=== PATIENT | male | born 1970 | race Caucasian/White ===

== ENCOUNTER 2017-04-04 11:21 | Inpatient (IN) | payer OTHER ==
[~2017-04-04] VITALS: Ht 167.6 cm; Wt 86.7 kg
[2017-04-04] MEDS ORDERED: SODIUM CHLORIDE 0.9% 1L BAG IV* STA (12:10)
--- NOTE | 2017-04-04 12:50 | ERD ---
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 The patient has had weakness and malaise on and off for several months he has been bouncing around different emergency rooms because of this. His insurance has changed and he followed up with Dr. Fisher for the first time today. She was attempting to arrange for outpatient IVIG but the patient presented to the emergency room because he continued to feel ill. He does describe a cough that is dry, minimally productive, occasionally with bloody sputum. He does describe a history and current treatment for bilateral lower extremity DVT on Lovenox. He denies any pleuritic pain or chest pain at this time. No fevers or chills otherwise the patient has generalized malaise. ROS All systems reviewed and are negative except as per history of present illness. Medications Home Meds Reported Medications Omeprazole* (Omeprazole*) 20 Mg Capsule.dr, 20 MG PO AC BREAKFAST, #30 CAP 04/04/17 Gemfibrozil* (Gemfibrozil*) 600 Mg Tablet, 600 MG PO BID, TAB 04/04/17 Esomeprazole Mag Trihydrate (Nexium) 40 Mg Capsule.dr, 40 MG PO BID, #60 CAP 04/04/17 Acyclovir* (Acyclovir*) 400 Mg Tablet, 400 MG PO BID, TAB 04/04/17 Sulfamethoxazole/Trimethoprim* (Bactrim Ds* Tablet) 1 Each Tablet, 1 TAB PO BID ON WEEKENDS, TAB 04/04/17 Isavuconazonium Sulfate (Cresemba) 186 Mg Capsule, 186 MG PO DAILY, CAP 04/04/17 Amlodipine Besylate* (Norvasc*) 5 Mg Tablet, 5 MG PO DAILY, TAB 04/04/17 Enoxaparin Sodium (Enoxaparin Sodium) 100 Mg/1 Ml Syringe, 100 MG SC Q12, SYR 04/04/17 Allergies Allergies: Coded Allergies: IgA less than or equal to 50 mcg/mL (Verified Allergy, Severe, 04/04/17) glucose (Verified Allergy, Severe, 04/04/17) glycine (Verified Allergy, Severe, 04/04/17) immune globulin,gamma (IgG) human (Verified Allergy, Severe, 04/04/17) PMhx/Soc Hypertension, AML FmHx Family History: No diabetes Physical Exam Vitals Vital Signs Date Time Temp Pulse Resp B/P Pulse Ox O2 Delivery O2 Flow Rate FiO2 04/04/17 15:30 98.5 82 20 138/82 98 Room Air 04/04/17 12:30 98.5 87 20 142/100 98 Room Air 04/04/17 11:24 99.8 89 17 130/91 100 Physical Exam General: Generally weak, no significant distress, coughing Head: Normocephalic, atraumatic. Eyes: Pupils equally reactive, EOM intact ENT: Moist mucous membranes Neck: Supple, no lymphadenopathy Respiratory: Lungs clear bilaterally, no distress Cardiovascular: RRR, no murmurs, rubs, or gallops Abdominal: Soft, non-tender, non-distended, no peritoneal signs : Deferred MSK: No edema, no unilateral swelling, 5/5 strength Neurologic: Alert and oriented, moving all extremities, normal speech, no focal weakness, no cerebellar signs, no meningismus Skin: No rash Psych: Normal mood Result Diagram: 04/04/17 1210 04/04/17 1210 Results 24 hrs Laboratory Tests Test 04/04/17 12:10 04/04/17 12:30 White Blood Count 8.110^3/ul Red Blood Count 4.2210^6/ul Hemoglobin 15.3g/dl Hematocrit 43.2% Mean Corpuscular Volume 102.4fl Mean Corpuscular Hemoglobin 36.3pg Mean Corpuscular Hemoglobin Concent 35.4g/dl Red Cell Distribution Width 12.3% Platelet Count 10606^3/UL Mean Platelet Volume 9.7fl Neutrophils % 73.5% Lymphocytes % 21.1% Monocytes % 4.8% Eosinophils % 0.2% Basophils % 0.2% Nucleated Red Blood Cells % 0.0/100WBC Neutrophils # 6.010^3/ul Lymphocytes # 1.710^3/ul Monocytes # 0.410^3/ul Eosinophils # 0.010^3/ul Basophils # 0.010^3/ul Nucleated Red Blood Cells # 0.010^3/ul Prothrombin Time 14.2Sec Prothrombin Time Ratio 1.1 INR International Normalized Ratio 1.09 Activated Partial Thromboplast Time 44.9Sec Sodium Level 142mmol/L Potassium Level 4.5mmol/L Chloride Level 103mmol/L Carbon Dioxide Level 25mmol/L Anion Gap 19 Blood Urea Nitrogen 15mg/dl Creatinine 1.13mg/dl Glucose Level 131mg/dl Calcium Level 9.8mg/dl Total Bilirubin 0.4mg/dl Direct Bilirubin 0.00mg/dl Indirect Bilirubin 0.4mg/dl Aspartate Amino Transf (AST/SGOT) 43IU/L Alanine Aminotransferase (ALT/SGPT) 59IU/L Alkaline Phosphatase 100IU/L Lactate Dehydrogenase 492IU/L Troponin I < 0.012ng/ml Total Protein 8.2g/dl Albumin 4.8g/dl Globulin 3.40g/dl Albumin/Globulin Ratio 1.41 Lactic Acid Level 1.0mmol/L Current Medications Medications (Trade) Dose Ordered Sig/Sharon Route PRN Reason Start Time Stop Time Status Last Admin Dose Admin Sodium Chloride (NS) 2,680 ml BOLUS OVER 2 HOURS STAT IV* 04/04/17 12:10 04/04/17 12:12 DC 04/04/17 14:44 IV Flush 10 ml 10 ml STK-MED ONCE .ROUTE 04/04/17 13:42 04/04/17 13:43 DC 04/04/17 13:57 Sodium Chloride 100 ml @ ud STK-MED ONCE .ROUTE 04/04/17 13:42 04/04/17 13:43 DC 04/04/17 13:57 Iohexol (Omnipaque) 100 ml @ ud STK-MED ONCE .ROUTE 04/04/17 13:42 04/04/17 13:43 DC 04/04/17 13:57 Iohexol 50 ml 50 ml STK-MED ONCE .ROUTE 04/04/17 13:42 04/04/17 13:43 DC 04/04/17 13:58 Cefepime HCl 50 ml @ 100 mls/hr ONCE STAT IVPB 04/04/17 14:20 04/04/17 14:49 DC Vancomycin HCl (Vancocin) 250 ml @ 125 mls/hr ONCE STAT IVPB 04/04/17 14:20 04/04/17 16:19 04/04/17 14:44 Ondansetron HCl (Zofran Inj) 4 mg BRIDGE ORDER PRN IV NAUSEA AND/OR VOMITING 04/04/17 14:30 04/05/17 14:29 Acetaminophen (Tylenol Tab) 650 mg ER BRIDGE PRN PO MILD PAIN/FEVER 04/04/17 14:30 04/05/17 14:29 Hydromorphone HCl 0.5 mg 0.5 mg ONCE STAT IV 04/04/17 14:34 04/04/17 14:36 DC 04/04/17 14:43 Cefepime HCl (Maxipime 1gm/50 ml (Pmx)) 50 ml @ 100 mls/hr Q8H IVPB 04/04/17 15:30 UNV IV Flush (NS 3 ml) 3 ml PER PROTOCOL IV 04/04/17 16:00 UNV Ondansetron HCl (Zofran Tab) 4 mg Q6H PRN PO NAUSEA AND/OR VOMITING 04/04/17 16:00 UNV Ondansetron HCl (Zofran Inj) 4 mg Q6H PRN IV NAUSEA AND/OR VOMITING 04/04/17 16:00 UNV Acetaminophen (Tylenol Tab) 650 mg Q6H PRN PO PAIN LEVEL 1-3 OR FEVER 04/04/17 16:00 Acetaminophen/ Hydrocodone Bitart ([place] (5/325)) 1 tab Q6H PRN PO MODERATE PAIN LEVEL 4-6 04/04/17 16:00 UNV Enoxaparin Sodium (Lovenox) 40 mg DAILY SC 04/05/17 09:00 04/05/17 09:00 DC Acyclovir (Zovirax) 400 mg BID PO 04/04/17 21:00 Amlodipine Besylate (Norvasc) 5 mg DAILY PO 04/05/17 09:00 Gemfibrozil (Lopid) 600 mg BID PO 04/04/17 21:00 UNV Trimethoprim/ Sulfamethoxazole (Bactrim (Ds)) 1 tab NOTE PO 04/04/17 16:00 UNV Miscellaneous Information 186 mg DAILY PO 04/05/17 09:00 UNV Miscellaneous Information 20 mg AC BREAKFAST PO 04/05/17 07:00 UNV Immune Globulin (Carimune Nf) 36 gm DAILY IV 04/04/17 16:01 04/04/17 23:00 UNV Diphenhydramine HCl (Benadryl) 25 mg ONCE ONCE IV 04/04/17 16:00 04/04/17 16:01 UNV Acetaminophen (Tylenol Tab) 650 mg ONCE PO 04/04/17 16:00 04/04/17 23:59 Procedures/MDM EKG, MONITORS, & DIAGNOSTIC IMAGING: EKG: I reviewed and interpreted a 12-lead EKG. Rhythm: Normal sinus rhythm Ectopy: None Intervals: No abnormalities ST segments: No elevations or depressions T waves: No contiguous inversions Chest x-ray: I reviewed and interpreted a 1 view of the chest Mediastinum: No enlargement Cardiac silhouette: No cardiomegaly Airspace: Clear lung barry bilaterally without evidence of pneumothorax Bones: No evidence of fracture CTPA: IMPRESSION: 1. No evidence of large or central pulmonary emboli. 2. No aortic aneurysm or dissection. 3. Ground-glass infiltrates in both lower lobes right greater than left consistent with acute areas of pneumonia / pneumonitis. 4. Mild thickening of the distal esophagus suspicious for esophagitis. There is a probable small hiatal hernia as well LAB INTERPRETATION: No significant leukocytosis or evidence of ischemia, normal lactic acid MEDICAL DECISION MAKING: The patient presents for generalized weakness. The patient does have a cough. Occasionally he is describing blood-tinged sputum. Consider possible pneumonia versus pulmonary embolism given his history of DVT, AML. Consider progression of disease process. No evidence of ARDS. I spoke to Dr. Fisher who saw the patient for the first time today. She is recommending inpatient hospitalization for IVIG. She states that continued care should be through a tertiary care center such as [facility]. However, the patient can be stabilized and admitted to [facility] at this time the patient has any acute issues. Additionally, she would like the patient receive a dose of IVIG as an inpatient. Observation status at a minimum would be appropriate. ER COURSE: CT imaging shows no evidence of PE, consider bilateral pneumonia versus pneumonitis. Empiric antibiotics in the form of vancomycin and cefepime provided. Lactic acid is normal. No Sirs criteria. The patient does have a mild headache but no evidence of intracranial process. No indication for CT. This is likely secondary to fatigue and mild dehydration. He has a nonfocal neurologic exam and does not require advanced imaging at this time. Pain controlled at this point. The patient will be admitted for further management, antibiotics and hematology oncology consultation. I kept the patient and/or family informed of laboratory and diagnostic imaging results throughout the emergency room course. DISPOSITION PLAN: Medical surgical admission Accepting care team and consultations: I discussed the current laboratory data, diagnostic imaging and emergency care provided. Admitting team: Dr. Carballo Admitting team indication: Insurance directed Consulting services: Dr Fisher Departure Diagnosis: Primary Impression: Pneumonia Pneumonia type: due to unspecified organism Laterality: bilateral Lung location: unspecified part of lung Qualified Code: J18.9 - Pneumonia of both lungs due to infectious organism, unspecified part of lung Additional Impression: AML (acute myeloblastic leukemia) Leukemia Active/Remission status: without remission Qualified Code: C92.00 - Acute myeloid leukemia not having achieved remission Condition: Stable FABRICIO ROBIN MD Apr 04, 2017 12:50
[2017-04-04 12:57] LABS: BASOPHILS % 0.2 % (0.0-2.0); EOSINOPHILS % 0.2 % (0.0-7.0); HEMATOCRIT 43.2 % (42.0-52.0); HEMOGLOBIN 15.3 g/dl (14.0-18.0); LYMPHOCYTES # 1.7 10^3/ul (0.8-2.9); LYMPHOCYTES % 21.1 % (15.0-51.0); MEAN CORPUSCULAR HEMOGLOBIN 36.3 pg (29.0-33.0); MEAN CORPUSCULAR HGB CONC 35.4 g/dl (32.0-37.0); MEAN CORPUSCULAR VOLUME 102.4 fl (82.0-101.0); MEAN PLATELET VOLUME 9.7 fl (7.4-10.4); MONOCYTE # 0.4 10^3/ul (0.3-0.9); MONOCYTES % 4.8 % (0.0-11.0); NEUTROPHILS % 73.5 % (39.0-77.0); PLATELET COUNT 280 10^3/UL (140-415); RED BLOOD COUNT 4.22 10^6/ul (4.70-6.10); RED CELL DISTRIBUTION WIDTH 12.3 % (11.5-14.5); WHITE BLOOD COUNT 8.1 10^3/ul (4.8-10.8)
--- NOTE | 2017-04-04 13:06 | RADRPT ---
PROCEDURE: XR Chest. CLINICAL INDICATION: chest pain TECHNIQUE: Single frontal view of the chest was obtained COMPARISON: None FINDINGS: The heart and mediastinum are within normal limits. The lungs are clear. There is no pleural effusion or pneumothorax. RPTAT: AA IMPRESSION: No acute disease. .Robe Dick MD, Date Time Electronically viewed and signed by .Robe Dick MD, on 04/04/2017 13:06 .S/
[2017-04-04] MEDS ORDERED: ENOX100D2 SC (13:18)
[2017-04-04] MEDS ORDERED: AMLO5TAB4 PO (13:18)
[2017-04-04] MEDS ORDERED: ISAV186C PO (13:19)
[2017-04-04] MEDS ORDERED: ESOM40CA PO (13:20)
[2017-04-04] MEDS ORDERED: SULF1TAB31 PO (13:20)
[2017-04-04] MEDS ORDERED: ACYC400T2 PO (13:20)
[2017-04-04] MEDS ORDERED: GEMF600T60 PO (13:21)
[2017-04-04] MEDS ORDERED: OMEP20CA16 PO (13:21)
[2017-04-04 13:23] LABS: ALANINE AMINOTRANSFERASE 59 IU/L (13-69); ALBUMIN 4.8 g/dl (3.3-4.9); ALBUMIN/GLOBULIN RATIO 1.41; ALKALINE PHOSPHATASE 100 IU/L (42-121); ANION GAP 19 (8-16); ASPARTATE AMINO TRANSFERASE 43 IU/L (15-46); BILIRUBIN,INDIRECT 0.4 mg/dl (0-1.1); BILIRUBIN,TOTAL 0.4 mg/dl (0.2-1.3); BLOOD UREA NITROGEN 15 mg/dl (7-20); CALCIUM 9.8 mg/dl (8.4-10.2); CARBON DIOXIDE 25 mmol/L (21-31); CHLORIDE 103 mmol/L (97-110); CREATININE 1.13 mg/dl (0.61-1.24); GLUCOSE 131 mg/dl (70-220); LACTATE DEHYDROGENASE 492 IU/L (313-618); POTASSIUM 4.5 mmol/L (3.5-5.1); SODIUM 142 mmol/L (135-144); TOTAL PROTEIN 8.2 g/dl (6.1-8.1)
[2017-04-04 13:34] LABS: INR 1.09; PROTIME 14.2 Sec (11.9-14.9); PT RATIO 1.1
[2017-04-04 13:39] LABS: TROPONIN-I < 0.012 ng/ml (0.00-0.12)
[2017-04-04 13:40] LABS: PARTIAL THROMBOPLASTIN TIME 44.9 Sec (25.0-35.0)
[2017-04-04] MEDS ORDERED: SOD CHLORIDE 0.9% 100 ML ONE (13:42)
[2017-04-04] MEDS ORDERED: IOHEXOL 350MG/ML 50 ML BTL ONE (13:42)
[2017-04-04] MEDS ORDERED: IOHEXOL 100 ML ONE (13:42)
--- NOTE | 2017-04-04 14:03 | RADRPT ---
PROCEDURE: CTA Chest. CLINICAL INDICATION: Chest pain and shortness of breath TECHNIQUE: Continues 1.25 mm axial images were obtained from lung apices to the domes of diaphragm s following intravenous injection of 100 cc of Isovue 370. Images reconstructed in coronal, sagitta l, and 3-D format using maximum intensity projection technique.. The calculated dose length product (DLP) = 573.86 mGy-cm. The CTDlvol = 16.76 mGy. One or more of the following dose reduction techniq ues were used: Automated exposure control, adjustment of the mA and or KV according to patient size, or use of iterative reconstruction technique. COMPARISON: No prior studies are available for comparison. FINDINGS: Images through the pulmonary arteries demonstrates no evidence of a large or central pulmonary embol i. The ascending and descending thoracic aorta are normal in caliber without aneurysmal dilatation o r dissection. Heart chambers are normal in size. There is no pericardial effusion. No significant co ronary calcification is identified. There are no pathologically enlarged mediastinal or axillary lym ph nodes. There is mild thickening of the distal esophagus which may suggest esophagitis. Evaluation of the lung barry demonstrates ground-glass infiltrate in the right lower lobe and to a lesser extent the left lower lobe consistent with acute areas of pneumonia / pneumonitis. Upper lung barry are clear. No suspicious or dominant lung nodules/masses are seen. There is no pleural fluid or pneumothorax. No destructive bony lesions are seen. IMPRESSION: 1. No evidence of large or central pulmonary emboli. 2. No aortic aneurysm or dissection. 3. Ground-glass infiltrates in both lower lobes right greater than left consistent with acute areas of pneumonia / pneumonitis. 4. Mild thickening of the distal esophagus suspicious for esophagitis. There is a probable small hi atal hernia as well RPTAT: HH .Gabriel Bond MD, Date Time Electronically viewed and signed by .Gabriel Bond MD, MD on 04/04/2017 14:03 .W/
[2017-04-04] MEDS ORDERED: CEFEPIME 1GM/50 ML (PMX) 50 ML IVPB STA (14:20)
[2017-04-04] MEDS ORDERED: VANCOMYCIN 1 GM (PMX) 250 ML IVPB STA (14:20)
[2017-04-04] MEDS ORDERED: ONDANSETRON 4 MG INJ IV PRN ×2 (14:30→16:00)
[2017-04-04] MEDS ORDERED: ACETAMINOPHEN 325 MG TAB PO PRN ×2 (14:30→16:00)
[2017-04-04] MEDS ORDERED: HYDROmorphONE 0.5 MG/0.5 ML SYG IV STA (14:34)
[2017-04-04] MEDS ORDERED: ONDANSETRON 4 MG TAB PO PRN (16:00)
[2017-04-04] MEDS ORDERED: NACL 0.9% 3 ML SYG IV SCH (16:00)
[2017-04-04] MEDS ORDERED: ACETAMINOPHEN 325 MG TAB PO SCH (16:00)
[2017-04-04] MEDS ORDERED: HYDROCODONE/APAP (5/325) TAB PO PRN (16:00)
[2017-04-04] MEDS ORDERED: DIPHENHYDRAMINE 50 MG INJ IV SCH (16:00)
[2017-04-04] MEDS ORDERED: IMMUNE GLOBULIN (HUMAN) 6 GM INJ IV SCH (16:01)
[2017-04-04] MEDS: CEFEPIME 1GM/50 ML (PMX) 50 ML IVPB SCH (16:30)
--- NOTE | 2017-04-04 17:05 | RADRPT ---
PROCEDURE: US bilateral lower extremity venous CLINICAL INDICATION: Chest pain. Shortness of breath. Bilateral leg swelling. TECHNIQUE: Multiple longitudinal and transverse images of the bilateral lower extremity veins were obtained with smalls scale and color Doppler imaging. 2D grayscale measurements with compression, col or Doppler flow, and augmentation was performed. The calf veins were interrogated as well. COMPARISON: None available FINDINGS: The bilateral common femoral, femoral, and popliteal veins are patent and without evidence of fillin g defects. All these veins have normal spectral wave forms, fill with color signal, are compressibl e, and have augmentation of blood flow with compression. The visualized upper calf veins (posterior tibial and peroneal) are patent and without evidence of f illing defects; these veins fill with color signal and are compressible. IMPRESSION: 1. No evidence of deep vein thrombosis involving either lower extremity RPTAT: TT Physician Bozena Date Time Electronically viewed and signed by Physician Bozena on 04/04/2017 17:05 KERMIT/
[2017-04-04 17:26] LABS: IMMUNOGLOBULIN A 66 mg/dl (70-400); IMMUNOGLOBULIN G 612 mg/dl (700-1600); IMMUNOGLOBULIN M 60 mg/dl (40-230)
--- NOTE | 2017-04-04 18:04 | HP ---
Date/Time of Note Date/Time of Note DATE: 04/04/17 TIME: 17:54 Assessment/Plan VTE Prophylaxis VTE Prophylaxis Intervention: SCD's Assessment/Plan Assessment/Plan 47 yo M with AML sp allogenic HSCT in . presents with a few days of malaise, cough, fevers prior to admission. Imaging with bl LL infiltrates, concerning for pna. #pna: cefepime likely too broad as pt not neutropenic and IgG not markedly low. Will likely de escalate to ceftriaxone/azithro v levoflox after IvIG infusion -sputum culture -respiratory viral swab -urine strep Ag #hx SCT: cont home antimicrobials though I am suprised pt is on Cresemba instead of vori/posaconazole if mold is a concern in addition to fungus -per IDSA guidelines, bactrim indicated x 6 mos after transplant for toxo/pJP -re acyclovir/antiviral, also unclear to me if pt does not have mucocytis and is so far out from his transplant why antiviral prophylaxis is still indicated however appears some center continue acyclovir if donor was HSV+ -heme following appreciate assistance #esophagitis incidentally noted on CT: outpatient GI follow up CM CONSULT TO SEE HOW TO GET PATIENT RECONNECTED WITH [facility] HPI/ROS Admit Date/Time Admit Date/Time Hx of Present Illness CC not feeling well HPI 47 yo M with pmhx AML sp allogenic stem cell transplant 6 at [facility] presents with a week of fevers, malaise. Pt has been unable to follow at [facility] for several months 2/2 insurance issues. He presented to hematology clinic this AM with a stranding supervisor covered by his current insurance. He looked unwell so stranding supervisor sent him to the ER. Pt states he had fevers as high as 107(?!) earlier this week. Presented to [place] twice but was never admitted. Pt also diagnosed with LE DVT last year, has been on lovenox since. PMH/Family/Social Social History lives in the community Smoking Status: Never smoker Exam/Review of Systems Vital Signs Vitals Vital Signs Date Time Temp Pulse Resp B/P Pulse Ox O2 Delivery O2 Flow Rate FiO2 04/04/17 15:30 98.5 82 20 138/82 98 Room Air Exam Exam wearing mask, laying on his side EOMI no gross thyromegaly decreased breath sounds L base no mrg abd soft no rashes no edema CBC reviewed, ANC 6000 Imaging: no DVTs, BL lwr lobe pna, ?esophagitis Labs Result Diagram: 04/04/17 1210 04/04/17 1210 Medications Medications Current Medications Cefepime HCl (Maxipime 1gm/50 ml (Pmx)) 50 ml @ 100 mls/hr Q8H IVPB ; Start at 16:30 Ondansetron HCl (Zofran Tab) 4 mg Q6H PRN PO NAUSEA AND/OR VOMITING; Start at 16:00 Ondansetron HCl (Zofran Inj) 4 mg Q6H PRN IV NAUSEA AND/OR VOMITING; Start at 16:00 Acetaminophen (Tylenol Tab) 650 mg Q6H PRN PO PAIN LEVEL 1-3 OR FEVER; Start 04/04/17 at 16:00 Acetaminophen/ Hydrocodone Bitart ([place] (5/325)) 1 tab Q6H PRN PO MODERATE PAIN LEVEL 4-6; Start 04/04/17 at 16:00 Acyclovir (Zovirax) 400 mg BID PO ; Start 04/04/17 at 21:00 Amlodipine Besylate (Norvasc) 5 mg DAILY PO ; Start 04/05/17 at 09:00 Gemfibrozil (Lopid) 600 mg BID PO ; Start 04/04/17 at 21:00 Trimethoprim/ Sulfamethoxazole (Bactrim (Ds)) 1 tab SuSa@09 PO ; Start 04/06/17 at 09:00 Miscellaneous Information 186 mg DAILY PO ; Start 04/05/17 at 09:00; Status UNV Pantoprazole (Protonix Tab) 40 mg DAILY@06 PO ; Start 04/05/17 at 06:00 Immune Globulin (Carimune Nf) 36 gm DAILY IV ; Start 04/04/17 at 16:01; Stop 04/04/17 at 23:00; Status UNV Diphenhydramine HCl (Benadryl) 25 mg ONCE IV ; Start 04/04/17 at 16:00; Stop 04/04/17 at 23:59 Acetaminophen (Tylenol Tab) 650 mg ONCE PO ; Start 04/04/17 at 16:00; Stop at 23:59 Miscellaneous Information (*Order Clarification Bulletin) Isavuconazonium Sulfate (Cresemba) ... Q8H XX ; Start 04/04/17 at 16:30 STEPAN JIMENEZ MD Apr 04, 2017 18:04
[2017-04-04 19:30] VITALS: TEMP 98.5
[2017-04-04] MEDS ORDERED: NACL 3% FOR INHALATION 15 ML NEBU NEB ONE (20:00)
[2017-04-04 20:07] LABS: ADD UMIC NO; UR ASCORBIC ACID NEGATIVE (NEGATIVE); UR BILIRUBIN (Dip) NEGATIVE (NEGATIVE); UR BLOOD (Dip) NEGATIVE (NEGATIVE); UR CLARITY CLEAR (CLEAR); UR COLOR YELLOW (YELLOW); UR GLUCOSE (Dip) NEGATIVE (NEGATIVE); UR KETONES (Dip) NEGATIVE (NEGATIVE); UR LEUKOCYTE ESTERASE (Dip) NEGATIVE Leu/ul (NEGATIVE); UR NITRITE (Dip) NEGATIVE (NEGATIVE); UR SPECIFIC GRAVITY (Dip) 1.058 (1.003-1.030); UR TOTAL PROTEIN (Dip) NEGATIVE (NEGATIVE); UR UROBILINOGEN (Dip) NEGATIVE (NEGATIVE)
[2017-04-04] MEDS: GEMFIBROZIL 600 MG TAB PO SCH (21:00)
[2017-04-04] MEDS ORDERED: IMMUNE GLOBULIN IV SCH (22:00)
[2017-04-04] MEDS ORDERED: WATER STERILE FOR IV SCH (22:00)
[2017-04-04 22:15] VITALS: BP 126/60; PULSE 87; RESP 18
[2017-04-04] MEDS: [UNRECOGNIZED DRUG - REMARK] XX SCH (22:20)
[2017-04-04 23:00] VITALS: Ht 167.6 cm; Wt 86.7 kg
[2017-04-04] MEDS ORDERED: MEPERIDINE 50 MG INJ IV PRN (23:00)
[2017-04-04] MEDS ORDERED: METHYLPREDNISOLONE 125 MG INJ IV PRN (23:00)
[2017-04-04] MEDS ORDERED: DIPHENHYDRAMINE 50 MG INJ IV PRN (23:00)
[2017-04-04] MEDS: ACYCLOVIR 400 MG TAB PO SCH (23:27)
[2017-04-04 23:55] VITALS: BP 134/60; PULSE 77; RESP 19
[2017-04-05] VITALS (9 sets, daily range): BP systolic 104–129; BP diastolic 50–77; PULSE 70–74; RESP 17–22
[2017-04-05] MEDS: [UNRECOGNIZED DRUG - REMARK] XX SCH ×2 (00:30→08:30)
[2017-04-05] MEDS: CEFEPIME 1GM/50 ML (PMX) 50 ML IVPB SCH ×2 (01:56→09:06)
[2017-04-05 05:16] LABS: BASOPHILS % 0.2 % (0.0-2.0); EOSINOPHILS # 0.1 10^3/ul (0.0-0.5); EOSINOPHILS % 1.2 % (0.0-7.0); HEMATOCRIT 37.5 % (42.0-52.0); HEMOGLOBIN 13.2 g/dl (14.0-18.0); LYMPHOCYTES # 1.4 10^3/ul (0.8-2.9); LYMPHOCYTES % 32.7 % (15.0-51.0); MEAN CORPUSCULAR HEMOGLOBIN 36.6 pg (29.0-33.0); MEAN CORPUSCULAR HGB CONC 35.2 g/dl (32.0-37.0); MEAN CORPUSCULAR VOLUME 103.9 fl (82.0-101.0); MEAN PLATELET VOLUME 9.7 fl (7.4-10.4); MONOCYTE # 0.1 10^3/ul (0.3-0.9); MONOCYTES % 2.8 % (0.0-11.0); NEUTROPHIL # 2.7 10^3/ul (1.6-7.5); NEUTROPHILS % 62.6 % (39.0-77.0); PLATELET COUNT 226 10^3/UL (140-415); RED BLOOD COUNT 3.61 10^6/ul (4.70-6.10); RED CELL DISTRIBUTION WIDTH 12.1 % (11.5-14.5); WHITE BLOOD COUNT 4.3 10^3/ul (4.8-10.8)
[2017-04-05 05:43] LABS: CALCIUM 9.3 mg/dl (8.4-10.2); CREATININE 0.95 mg/dl (0.61-1.24); MAGNESIUM 2.4 mg/dl (1.7-2.5); PHOSPHORUS 3.5 mg/dl (2.5-4.9)
[2017-04-05] MEDS ORDERED: PANTOPRAZOLE (EC) 40 MG TAB PO SCH (06:00)
[2017-04-05] MEDS ORDERED: ENOXAPARIN 40 MG/0.4 ML SYG SC SCH ×2 (09:00)
[2017-04-05] MEDS ORDERED: AMLODIPINE 5 MG TAB PO SCH (09:00)
[2017-04-05] MEDS ORDERED: ISAVUCONAZONIUM SULFATE 186 MG PO SCH (09:00)
[2017-04-05] MEDS: GEMFIBROZIL 600 MG TAB PO SCH ×2 (09:06→20:27)
[2017-04-05] MEDS: ACYCLOVIR 400 MG TAB PO SCH ×2 (09:06→20:28)
[2017-04-05] MEDS ORDERED: AZITHROMYCIN 250 MG TAB PO SCH (10:30)
[2017-04-05] MEDS ORDERED: CEFTRIAXONE 1 GM/50 ML (PMX) 50 ML IVPB SCH (10:30)
[2017-04-05] MEDS: VORICONAZOLE 200 MG TAB PO SCH ×2 (11:17→20:27)
--- NOTE | 2017-04-05 11:58 | CONS ---
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 -Explained to the patient I am not a bone marrow transplant or manager and do not have experience with immunosuppressant medications. -Given him he has had a bone marrow transplant and is on immunosuppressive medications, he will need to be followed at a tertiary care center by or manager who routinely bone marrow transplants and is able to monitor these medications. -I am concerned he is extremely immune suppressed and that is the reason why he is continually getting infected with pneumonias and URIs -PT has since received a dose of IVIG and his sx are much improved -Continue Bactrim double strength Saturday and Saturday as well as acyclovir 400 mg p.o. b.i.d. given he is chronically immune suppressed -continue Cresemba for antifungal activity # pneumonia -pt is s/p IV antibiotics -may discharge on Levaquin 750 mg q. day x7 days #h/o LE DVT -recent CTA and Dopplers do not reveal evidence of venous thrombosis -i explained to the patient that he does not need to be on anticoagulation at this time A total of 50 minutes of face to face time was spentspeaking with the patient, of which greater than 50% was spent in counseling and coordination of care and the detailed question and answer session. Problems: Consultation Date/Type/Reason Admit Date/Time 03/25/17 Date of Consultation: Apr 05, 2017 Type of Consultation: oncology Reason for Consultation AML/ pneumonia Referring Provider: STEPAN JIMENEZ MD Hx of Present Illness Mr. Kessler is a 38-year-old male who was first diagnosed with acute myelogenous leukemia on April 19, 2015. I do not have the initial bone marrow reports to confirm this. Patient states although he was initially diagnosed in [place] he was transferred to [facility] in [place] where he initiated chemotherapy. His chemotherapy course was complicated by a torn esophagus, blood clots, hepatitis, and kidney failure. After achieving a remission patient was sent to [facility] for further management. Patient received an HLA matched allogeneic stem cell transplant from his brother on 10/25. Patient has been followed at [facility] and is currently being managed on immunosuppressive. Patient also is receiving IVIG every 2 months. Patient states that for the past 2 months he has been feeling chronically fatigued, with cough, headache, bone pain and chills. Patient has been admitted to several different hospitals many times and is been discharged given the several courses of antibiotics. Of note patient is currently on Lovenox for the blood clots in his lower extremities. Since admission pt has had a CTA which did not reveal evidence of PE and a LE Doppler Rhea which also did not show evidence of DVT. 04/04/17: pt received a dose of IVIG. Since this infusion he states his sx of cough and congestion have much improved. Constitutional: no complaints Eyes: no complaints ENT: no complaints Respiratory: cough (improved) Cardiovascular: lightheadedness (improved) Gastrointestinal: no complaints Genitourinary: no complaints Musculoskeletal: back pain, bone/joint pain, neck pain Psychological: anxiety, depression Immunologic: immunodeficiency Past Medical History AML status post allogeneic stem cell transplant History of DVT Hyperlipidemia GERD Hypertension Insomnia Family History Significant Family History: no pertinent family hx Social History Alcohol Use: none Smoking Status: Never smoker Drug Use: none Exam/Review of Systems Vital Signs Vitals Vital Signs Date Time Temp Pulse Resp B/P Pulse Ox O2 Delivery O2 Flow Rate FiO2 04/05/17 07:21 98.0 61 20 120/65 99 04/05/17 05:00 Room Air 04/04/17 19:10 21 Intake and Output 04/04/17 04/04/17 04/05/17 15:00 23:00 07:00 Intake Total 1250 ml Output Total 900 ml Balance 350 ml Exam Constitutional: alert, oriented Psych: nl mood/affect, no complaints Head: normocephalic Eyes: nl conjunctiva ENMT: nl external ears & nose Neck: non-tender, supple Respiratory: congested cough Cardiovascular: regular rate and rhythm Gastrointestinal: soft Musculoskeletal: nl extremities to inspection, nl gait and stance Extremities: normal pulses Results Result Diagram: 04/05/17 04204/05/17 0420 Results 24 hrs Laboratory Tests Test 04/04/17 12:10 04/04/17 12:30 04/04/17 14:50 04/04/17 15:00 White Blood Count 8.1 Red Blood Count 4.22 L Hemoglobin 15.3 Hematocrit 43.2 Mean Corpuscular Volume 102.4 H Mean Corpuscular Hemoglobin 36.3 H Mean Corpuscular Hemoglobin Concent 35.4 Red Cell Distribution Width 12.3 Platelet Count 280 Mean Platelet Volume 9.7 Neutrophils % 73.5 Lymphocytes % 21.1 Monocytes % 4.8 Eosinophils % 0.2 Basophils % 0.2 Nucleated Red Blood Cells % 0.0 Neutrophils # 6.0 Lymphocytes # 1.7 Monocytes # 0.4 Eosinophils # 0.0 Basophils # 0.0 Nucleated Red Blood Cells # 0.0 Prothrombin Time 14.2 Prothrombin Time Ratio 1.1 INR International Normalized Ratio 1.09 Activated Partial Thromboplast Time 44.9 H Sodium Level 142 Potassium Level 4.5 Chloride Level 103 Carbon Dioxide Level 25 Anion Gap 19 H Blood Urea Nitrogen 15 Creatinine 1.13 Glucose Level 131 Calcium Level 9.8 Total Bilirubin 0.4 Direct Bilirubin 0.00 Indirect Bilirubin 0.4 Aspartate Amino Transf (AST/SGOT) 43 Alanine Aminotransferase (ALT/SGPT) 59 Alkaline Phosphatase 100 Lactate Dehydrogenase 492 Troponin I < 0.012 Total Protein 8.2 H Albumin 4.8 Globulin 3.40 H Albumin/Globulin Ratio 1.41 Lactic Acid Level 1.0 0.8 Immunoglobulin A 66 L Immunoglobulin G 612 L Immunoglobulin M 60 Test 04/04/17 18:16 04/04/17 19:50 04/05/17 04:20 Lactic Acid Level 0.8 Urine Color YELLOW Urine Clarity CLEAR Urine pH 6.0 Urine Specific [place] 1.058 H Urine Ketones NEGATIVE Urine Nitrite NEGATIVE Urine Bilirubin NEGATIVE Urine Urobilinogen NEGATIVE Urine Leukocyte Esterase NEGATIVE Urine Hemoglobin NEGATIVE Urine Glucose NEGATIVE Urine Total Protein NEGATIVE White Blood Count 4.3 #L Red Blood Count 3.61 L Hemoglobin 13.2 L Hematocrit 37.5 L Mean Corpuscular Volume 103.9 H Mean Corpuscular Hemoglobin 36.6 H Mean Corpuscular Hemoglobin Concent 35.2 Red Cell Distribution Width 12.1 Platelet Count 226 Mean Platelet Volume 9.7 Neutrophils % 62.6 Lymphocytes % 32.7 Monocytes % 2.8 Eosinophils % 1.2 Basophils % 0.2 Nucleated Red Blood Cells % 0.0 Neutrophils # 2.7 Lymphocytes # 1.4 Monocytes # 0.1 L Eosinophils # 0.1 Basophils # 0.0 Nucleated Red Blood Cells # 0.0 Sodium Level 141 Potassium Level 4.0 Chloride Level 105 Carbon Dioxide Level 26 Anion Gap 14 Blood Urea Nitrogen 12 Creatinine 0.95 Glucose Level 112 Calcium Level 9.3 Phosphorus Level 3.5 Magnesium Level 2.4 Medications Medications Current Medications Ondansetron HCl (Zofran Tab) 4 mg Q6H PRN PO NAUSEA AND/OR VOMITING; Start at 16:00 Ondansetron HCl (Zofran Inj) 4 mg Q6H PRN IV NAUSEA AND/OR VOMITING; Start at 16:00 Acetaminophen (Tylenol Tab) 650 mg Q6H PRN PO PAIN LEVEL 1-3 OR FEVER; Start 04/04/17 at 16:00 Acetaminophen/ Hydrocodone Bitart ([place] (5/325)) 1 tab Q6H PRN PO MODERATE PAIN LEVEL 4-6; Start 04/04/17 at 16:00 Acyclovir (Zovirax) 400 mg BID PO Last administered on 04/05/17 09:06; Admin Dose 400 MG; Start 04/04/17 at 21:00 Amlodipine Besylate (Norvasc) 5 mg DAILY PO Last administered on 04/05/17 09: 06; Admin Dose 5 MG; Start 04/05/17 at 09:00 Gemfibrozil (Lopid) 600 mg BID PO Last administered on 04/05/17 09:06; Admin Dose 600 MG; Start 04/04/17 at 21:00 Trimethoprim/ Sulfamethoxazole (Bactrim (Ds)) 1 tab SuSa@09 PO ; Start 04/06/17 at 09:00 Pantoprazole (Protonix Tab) 40 mg DAILY@06 PO Last administered on 04/05/17 06 :37; Admin Dose 40 MG; Start 04/05/17 at 06:00 Enoxaparin Sodium (Lovenox) 40 mg DAILY SC Last administered on 04/05/17 09:17 ; Admin Dose 40 MG; Start 04/05/17 at 09:00 Methylprednisolone Sodium Succinate (Solu-Medrol) 60 mg Q6H PRN IV ALLERGIC REACTION; Start 04/04/17 at 23:00 Diphenhydramine HCl (Benadryl) 25 mg Q2H PRN IV ALLERGIC REACTION; Start 04/04 at 23:00 Meperidine HCl (Demerol) 25 mg Q2H PRN IV RIGORS/ALLERGIC REACTION; Start at 23:00 Voriconazole 200 mg 200 mg BID PO Last administered on 04/05/17 11:17; Admin Dose 200 MG; Start 04/05/17 at 10:00 Ceftriaxone Sodium (Rocephin) 50 ml @ 100 mls/hr Q24H IVPB Last administered on 04/05/17 11:17; Admin Dose 100 MLS/HR; Start 04/05/17 at 10:30 Azithromycin (Zithromax) 500 mg DAILY PO Last administered on 04/05/17 11:; Admin Dose 500 MG; Start 04/05/17 at 10:30 JEFF DIOP M.D. Apr 05, 2017 11:57
[2017-04-05] MEDS ORDERED: LEVO750T8 PO (13:59)
--- NOTE | 2017-04-05 14:15 | DS ---
Date/Time of Note Date/Time of Note DATE: 04/05/17 TIME: 14:09 Discharge Summary Admission/Discharge Info Admit Date/Time Apr 04, 2017 at 14:24 Discharge Date/Time Discharge Diagnosis bilateral lower lobe pneumonia, possibly viral in origin; AML sp allogenic SCT ( POA) Consults hematology Procedures 11.30: sputum NRF, blood culture ng, urine culture ng 11.30 CTA chest IMPRESSION: 1. No evidence of large or central pulmonary emboli. 2. No aortic aneurysm or dissection. 3. Ground-glass infiltrates in both lower lobes right greater than left consistent with acute areas of pneumonia / pneumonitis. 4. Mild thickening of the distal esophagus suspicious for esophagitis. There is a probable small hiatal hernia as well 11.30 BL LE dopplers: no DVT blood work IgG 612 IgA 66 IgM 60 CBC & CRP Test 04/04/17 12:10 04/05/17 04:20 White Blood Count 8.110^3/ul (4.8-10.8) 4.310^3/ul (4.8-10.8) #L Red Blood Count 4.2210^6/ul (4.70-6.10) L 3.6110^6/ul (4.70-6.10) L Hemoglobin 15.3g/dl (14.0-18.0) 13.2g/dl (14.0-18.0) L Hematocrit 43.2% (42.0-52.0) 37.5% (42.0-52.0) L Mean Corpuscular Volume 102.4fl (82.0-101.0) H 103.9fl (82.0-101.0) H Mean Corpuscular Hemoglobin 36.3pg (29.0-33.0) H 36.6pg (29.0-33.0) H Mean Corpuscular Hemoglobin Concent 35.4g/dl (32.0-37.0) 35.2g/dl (32.0-37.0) Red Cell Distribution Width 12.3% (11.5-14.5) 12.1% (11.5-14.5) Platelet Count 91082^3/UL (140-415) 37568^3/UL (140-415) Mean Platelet Volume 9.7fl (7.4-10.4) 9.7fl (7.4-10.4) Neutrophils % 73.5% (39.0-77.0) 62.6% (39.0-77.0) Lymphocytes % 21.1% (15.0-51.0) 32.7% (15.0-51.0) Monocytes % 4.8% (0.0-11.0) 2.8% (0.0-11.0) Eosinophils % 0.2% (0.0-7.0) 1.2% (0.0-7.0) Basophils % 0.2% (0.0-2.0) 0.2% (0.0-2.0) Nucleated Red Blood Cells % 0.0/100WBC (0.0-0.0) 0.0/100WBC (0.0-0.0) Neutrophils # 6.010^3/ul (1.6-7.5) 2.710^3/ul (1.6-7.5) Lymphocytes # 1.710^3/ul (0.8-2.9) 1.410^3/ul (0.8-2.9) Monocytes # 0.410^3/ul (0.3-0.9) 0.110^3/ul (0.3-0.9) L Eosinophils # 0.010^3/ul (0.0-0.5) 0.110^3/ul (0.0-0.5) Basophils # 0.010^3/ul (0.0-0.1) 0.010^3/ul (0.0-0.1) Nucleated Red Blood Cells # 0.010^3/ul (0.0-0.0) 0.010^3/ul (0.0-0.0) Hx of Present Illness CC not feeling well HPI 47 yo M with pmhx AML sp allogenic stem cell transplant 6.17 at [facility] presents with a week of fevers, malaise. Pt has been unable to follow at [facility] for several months 2/2 insurance issues. He presented to hematology clinic this AM with a animal care technician covered by his current insurance. He looked unwell so animal care technician sent him to the ER. Pt states he had fevers as high as 107(?!) earlier this week. Presented to [place] twice but was never admitted. Pt also diagnosed with LE DVT last year, has been on lovenox since. Hospital Course 47 yo M with AML sp allogenic HSCT in 6.16 presents with a few days of malaise, cough, fevers prior to admission. Imaging with bl LL infiltrates, concerning for pna. Pt seen by hematology, received IvIg infusion given low IgG level. Pt felt much better in the morning. No evidence of neutropenia, no fevers. Pt never required supplemental O2. Pt is discharged home with oral antibiotics. Case management helped ensure he will be able to continue to follow with [facility] for his leukemia related care. Given no PE or DVTs on imaging, no compelling indication to continue LMWH after discharge. Esophagitis incidentally noted on CT. Pt to follow up with PCP and continue PPI. Home Meds Reported Medications Omeprazole* (Omeprazole*) 20 Mg Capsule., 20 MG PO AC BREAKFAST, #30 CAP 04/04/17 Gemfibrozil* (Gemfibrozil*) 600 Mg Tablet, 600 MG PO BID, TAB 04/04/17 Esomeprazole Mag Trihydrate (Nexium) 40 Mg Capsule.dr, 40 MG PO BID, #60 CAP 04/04/17 Acyclovir* (Acyclovir*) 400 Mg Tablet, 400 MG PO BID, TAB 04/04/17 Sulfamethoxazole/Trimethoprim* (Bactrim Ds* Tablet) 1 Each Tablet, 1 TAB PO BID ON WEEKENDS, TAB 04/04/17 Isavuconazonium Sulfate (Cresemba) 186 Mg Capsule, 186 MG PO DAILY, CAP 04/04/17 Amlodipine Besylate* (Norvasc*) 5 Mg Tablet, 5 MG PO DAILY, TAB 04/04/17 Enoxaparin Sodium (Enoxaparin Sodium) 100 Mg/1 Ml Syringe, 100 MG SC Q12, SYR 04/04/17 Follow-up Plan Pt to follow up with [facility] for continued post SCT care Primary Care Provider [facility] Time spent on discharge: > 30 minutes Pending Labs Laboratory Tests Test 04/04/17 14:50 04/04/17 15:00 04/04/17 18:16 04/04/17 19:50 Lactic Acid Level 0.8mmol/L (0.5-2.0) 0.8mmol/L (0.5-2.0) Immunoglobulin A 66mg/dl (70-400) Immunoglobulin G 612mg/dl (700-1600) Immunoglobulin M 60mg/dl (40-230) Urine Color YELLOW (YELLOW) Urine Clarity CLEAR (CLEAR) Urine pH 6.0 (5.0-9.0) Urine Specific [place] 1.058 (1.003-1.030) Urine Ketones NEGATIVEmg/dL (NEGATIVE) Urine Nitrite NEGATIVEmg/dL (NEGATIVE) Urine Bilirubin NEGATIVEmg/dL (NEGATIVE) Urine Urobilinogen NEGATIVEmg/dL (NEGATIVE) Urine Leukocyte Esterase NEGATIVELeu/ul (NEGATIVE) Urine Hemoglobin NEGATIVEmg/dL (NEGATIVE) Urine Glucose NEGATIVEmg/dL (NEGATIVE) Urine Total Protein NEGATIVEmg/dl (NEGATIVE) Test 04/05/17 04:20 White Blood Count 4.310^3/ul (4.8-10.8) Red Blood Count 3.6110^6/ul (4.70-6.10) Hemoglobin 13.2g/dl (14.0-18.0) Hematocrit 37.5% (42.0-52.0) Mean Corpuscular Volume 103.9fl (82.0-101.0) Mean Corpuscular Hemoglobin 36.6pg (29.0-33.0) Mean Corpuscular Hemoglobin Concent 35.2g/dl (32.0-37.0) Red Cell Distribution Width 12.1% (11.5-14.5) Platelet Count 81365^3/UL (140-415) Mean Platelet Volume 9.7fl (7.4-10.4) Neutrophils % 62.6% (39.0-77.0) Lymphocytes % 32.7% (15.0-51.0) Monocytes % 2.8% (0.0-11.0) Eosinophils % 1.2% (0.0-7.0) Basophils % 0.2% (0.0-2.0) Nucleated Red Blood Cells % 0.0/100WBC (0.0-0.0) Neutrophils # 2.710^3/ul (1.6-7.5) Lymphocytes # 1.410^3/ul (0.8-2.9) Monocytes # 0.110^3/ul (0.3-0.9) Eosinophils # 0.110^3/ul (0.0-0.5) Basophils # 0.010^3/ul (0.0-0.1) Nucleated Red Blood Cells # 0.010^3/ul (0.0-0.0) Sodium Level 141mmol/L (135-144) Potassium Level 4.0mmol/L (3.5-5.1) Chloride Level 105mmol/L (97-110) Carbon Dioxide Level 26mmol/L (21-31) Anion Gap 14 (8-16) Blood Urea Nitrogen 12mg/dl (7-20) Creatinine 0.95mg/dl (0.61-1.24) Glucose Level 112mg/dl (70-220) Calcium Level 9.3mg/dl (8.4-10.2) Phosphorus Level 3.5mg/dl (2.5-4.9) Magnesium Level 2.4mg/dl (1.7-2.5) Microbiology Date/Time Source Procedure Growth Status 04/04/17 19:25 Sputum Gram Stain Pending Resulted 04/04/17 19:25 Respiratory Culture - Preliminary Normal Respiratory [place] Resulted 04/04/17 19:50 Catheter Urine Urine Culture - Preliminary NO GROWTH AFTER 24 HOURS Resulted Copies To: CC: JEFF DIOP M.D., ELLEN MD Apr 05, 2017 14:15
--- NOTE | 2017-04-05 14:18 | PDOCDIS ---
Discharge Instructions DIAGNOSIS Discharge Diagnosis bilateral lower lobe pneumonia, possibly viral in origin; AML sp allogenic SCT ( POA) CONDITION Patient Condition: Stable FOLLOW UP/APPOINTMENTS Follow-up Plan Follow up with [facility] for continued post stem cell transplant care Of note, your CT chest showed some esophagitis/inflammation at the bottom of your esophagus. You are already on a stomach acid blocking pill (omeprazole/ lansoprazole) to help with this. Please talk to your regular doctor if he/she wants you to be seen by a manager commodities/stomach doctor STEPAN JIMENEZ MD Apr 05, 2017 14:18
[2017-04-06] MEDS ORDERED: TRIMETHOPRIM/SULFAMETHOX (DS) TAB PO SCH (09:00)
== END 2017-04-05 21:15 | disposition home or self-care (01) | DRG 194 ==
LOC: E/R 11:21 → MS1 14:24
PROVIDERS: ADMIT Internal Medicine; ATTEND Internal Medicine
DX: J18.9 Pneumonia, unspecified organism (principal); C92.00 Acute myeloblastic leukemia, not having achieved remission
CPT/HCPCS: 36415; 71010; 71275; 80048; 80053; 81003; 82784; 82785; 83605; 83615; 83735; 84100; 84484; 85025; 85610; 85730; 86403; 87040; 87070; 87086; 87275; 87276; 87279; 87280; 93005; 93970; 94664; 96374; 96375; J0692; J0696; J1170; J1200; J1566; J1650; J3370; J7030; Q9967

== ENCOUNTER 2018-12-23 06:49 | Day surgery (SDC) | payer OTHER ==
[~2018-12-23] VITALS: Ht 170.2 cm; Wt 94.2 kg
[~2018-12-23 06:49] MED LIST: ACYC400T2 PO; AMLO5TAB4 PO; ESOM40CA PO; GEMF600T8 PO; ISAV186C PO; LEVO750T8 PO; PANTOPRAZOLE; PROTONIX; SULF1TAB31 PO; [UNRECOGNIZED DRUG - OTHER]
[2018-12-23 07:28] VITALS: Ht 170.2 cm; Wt 94.2 kg
[2018-12-23 09:15] VITALS: BP 122/72; PULSE 58; RESP 16
== END 2018-12-23 11:59 | disposition home or self-care (01) ==
LOC: GIL 06:49
PROVIDERS: ATTEND Internal Medicine Gastroenterology
DX: K44.9 Diaphragmatic hernia without obstruction or gangrene (principal); K29.30 Chronic superficial gastritis without bleeding
CPT/HCPCS: 43239; 85025; Z7610; 88305; 88312; 88313